=== PATIENT | female | born 1985 | race Hispanic/Latino ===

== ENCOUNTER 2022-01-06 12:37 | Emergency (ER) | payer SELFPAY ==
[2022-01-06 12:40] VITALS: BP 96/47; PULSE 99; RESP 16; TEMP 36.2; O2SAT 100
--- NOTE | 2022-01-06 12:57 | ED.GENADULT ---
HPI - General Adult General Chief complaint: Nausea/Vomiting/Diarrhea Stated complaint: vomiting Time Seen by Provider: 01/06/22 12:46 History of Present Illness HPI narrative: this is a 36-year-old female presenting to ED with 1 day of nausea and vomiting. Patient denied eating food throughout the day yesterday. She then went out and had 4 [place] cocktails. At 2:00 a.m. she began having vomiting. The patient has a history of cyclic vomiting although she has not had the episode in over 3 years. Patient also has abdominal pain that she describes as a burning sensation in the epigastric area that is nonradiating, 5 out 10 intensity and constant. The patient believes that there may be some element of hangover and vault in her current symptoms but is concerned because he has had cyclic vomiting in the past. Related Data Allergies Allergy/AdvReac Type Severity Reaction Status Date / Time PROCHLORPERAZINE MALEATE Allergy Unknown Unknown Uncoded 01/06/22 12:44 Review of Systems Review of Systems: CONSTITUTIONAL: Denies night sweats. EYES: No eye pain ENT: Denies rhinorrhea CARDIOVASCULAR: Denies palpitations RESPIRATORY: Denies hemoptysis GASTROINTESTINAL: Denies hematemesis GENITOURINARY: Denies hematuria. SKIN: Denies rash MUSCULOSKELETAL: Denies myalgia. NEUROLOGIC: Denies weakness. PSYCHIATRIC: Denies delusions PMFSH Past Medical History Medical History Aborted ectopic Social History Social History (Updated 01/06/22 @ 13:00 by Murtaza Damon MD) Social History: Patient drinks alcohol occasionally, denies tobacco or drug use Exam Narrative: APPEARANCE: No apparent distress. Head atraumatic. EYES: PERRLA/EOMI, NOSE: Normal no drainage NECK: Supple, Trachea midline RESPIRATORY: CTAB, No increased work of breathing. CARDIOVASCULAR: S1S2 appreciated ABDOMINAL: mild tenderness palpation the epigastric area. Abdomen is soft, no guarding or rebound MUSCULOSKELETAl: No obvious deformities NEURO: Alert. Moving 4/4 extremities SKIN:: Warm, dry. Normal color PSYCHIATRIC: Normal affect Course Vital Signs Vital signs: Vital Signs Temperature 97.2 F L 01/06/22 12:40 Pulse Rate 99 01/06/22 12:40 Respiratory Rate 16 01/06/22 12:40 Blood Pressure 96/47 L 01/06/22 12:40 Pulse Oximetry 100 01/06/22 12:40 Oxygen Delivery Room Air 01/06/22 12:40 Temperature 97.2 F L 01/06/22 12:40 Pulse Rate 99 01/06/22 12:40 Respiratory Rate 16 01/06/22 12:40 Blood Pressure 96/47 L 01/06/22 12:40 Pulse Oximetry 100 01/06/22 12:40 Oxygen Delivery Room Air 01/06/22 12:40 Medical Decision Making MDM Narrative Medical decision making narrative: this is a 36-year-old female presenting ED with chief complaint of nausea and vomiting since last night. Patient is not a heavy drinker and when out last night. Likely this is alcoholic gastritis or simply a hangover. Patient believes that his cyclic vomiting although she is not a marijuana user and has not had episodes like this over 3 years. She will be treated symptomatically. Patient's lab work was within normal limits. Upon re-evaluation patient says that her headache is improved. She is no longer nauseous. She was able to pass a p.o. challenge. She will be discharged home with [facility]. Vital Signs Vital Signs: Vital Signs Temperature 97.2 F L 01/06/22 12:40 Pulse Rate 99 01/06/22 12:40 Respiratory Rate 16 01/06/22 12:40 Blood Pressure 96/47 L 01/06/22 12:40 Pulse Oximetry 100 01/06/22 12:40 Oxygen Delivery Room Air 01/06/22 12:40 Temperature 97.2 F L 01/06/22 12:40 Pulse Rate 99 01/06/22 12:40 Respiratory Rate 16 01/06/22 12:40 Blood Pressure 96/47 L 01/06/22 12:40 Pulse Oximetry 100 01/06/22 12:40 Oxygen Delivery Room Air 01/06/22 12:40 Lab Data Result diagrams: 01/06/22 13:01 01/06/22 13
[2022-01-06] MEDS: SODIUM CHLORIDE 0.9% IV 2,000 ML 999 ML IV CONT (13:09)
[2022-01-06] MEDS: FAMOTIDINE 20 MG/2 ML VIAL IV PUSH (13:10)
[2022-01-06] MEDS: diphenhydrAMINE HCl INJ 50 MG/ML VIAL 25 MG IV PUSH (13:10)
[2022-01-06] MEDS: ONDANSETRON INJ 4 MG/2 ML VIAL IV PUSH (13:10)
[2022-01-06] MEDS: MAG HYDROX/AL HYDROX/SIMETH 30 ML UDC PO (13:11)
[2022-01-06 13:16] LABS: Basophils Percent Auto 0.1 % (0.2-1.2); Eosinophils Percent Auto 0.1 % (0-4.4); Hematocrit 40.3 % (37.0-47.0); Hemoglobin 13.8 g/dL (12.0-15.0); Immature Granulocyte Absolute 0.03 K/mm3 (0.00-0.031); Immature Granulocyte Percent A 0.3 % (0-0.5); Lymphocytes Absolute Auto 1.68 K/mm3 (0.9-3.2); Mean Corpuscular HGB Conc 34.2 g/dl (32-36); Mean Corpuscular Hemoglobin 30.5 pg (26-34); Monocytes Absolute Auto 0.3 K/mm3 (0.1-0.6); Monocytes Percent Auto 3.2 % (2.6-8.5); Neutrophils Absolute Auto 7.3 K/mm3 (1.3-6.7); Neutrophils Percent Auto 78.3 % (45.5-73.1); Platelet Count Result 357 k/mm3 (150-375); Red Blood Count 4.53 M/mm3 (4.2-5.4); Red Cell Distribution Width 13.8 % (11.5-14.5); White Blood Count 9.3 K/mm3 (4.5-10.0)
[2022-01-06] MEDS: KETOROLAC 15 MG/ML VIAL (*BKC) IV PUSH (13:16)
[2022-01-06] MEDS: HALOPERIDOL LACTATE 5 MG/ML VIAL IV PUSH (13:17)
[2022-01-06 13:27] LABS: Alanine Aminotransferase 25 U/L (6-35); Albumin Level 4.9 g/dL (3.5-5.1); Alkaline Phosphatase 68 U/L (38-126); Anion Gap 14 mmol/L (8-16); Aspartate Amino Transferase 34 U/L (14-36); Bilirubin,Total 0.5 mg/dL (0.2-1.3); Blood Urea Nitrogen 9 mg/dL (7-17); Calcium 8.9 mg/dL (8.4-10.2); Carbon Dioxide 20 mmol/L (22-30); Chloride 109 mmol/L (98-107); Estimated CRCL calculation 92 ml/min; Estimated Glomerular Filt Rate > 60; Glucose 106 mg/dL (65-110); Lipase 95 U/L (23-300); Magnesium 1.9 mg/dL (1.6-2.3); Potassium 3.9 mmol/L (3.4-5.0); Sodium 143 mmol/L (137-145)
--- NOTE | 2022-01-10 11:54 | PC.NURSE ---
late entry- iv fluids discontinued
== END 2022-01-06 14:23 | disposition home or self-care (01) ==
PROVIDERS: Emergency Provider Emergency Medicine; PCP Registered Nurse
DX: R11.2 Nausea with vomiting, unspecified (principal)
CPT/HCPCS: 36415; 80053; 81025; 83690; 83735; 85025; 96361; 96374; 96375; 99284; A9270; J0131; J1200; J1630; J1885; J2405; J7030

== ENCOUNTER 2023-05-21 17:01 | Emergency (ER) | payer SELFPAY ==
[2023-05-21 17:18] VITALS: BP 120/53; PULSE 74; RESP 16; TEMP 37.2; O2SAT 100
--- NOTE | 2023-05-21 17:24 | ED.EYEPROB ---
HPI - Eye Problem General Chief complaint: Eye Problems Stated complaint: eyes swollen,burn Time Seen by Provider: 05/21/23 17:20 Source: patient Mode of arrival: ambulatory Limitations: no limitations History of Present Illness HPI Narrative: Joyce is a 37-year-old female patient presenting to the clinic today with complaints of eyes swollen and burning. She reports this been going on for a week and half. States they are itchy and watering. Has been using polymyxin eyedrops in her eyes. Related Data Home Medications Medication Instructions Recorded Confirmed L norgest/E estradiol-E estrad 1 tablet PO DAILY 05/21/23 05/21/23 0.15 mg-30 mcg (84)/10 mcg(7) tabs,3mos ([place]) Allergies Allergy/AdvReac Type Severity Reaction Status Date / Time PROCHLORPERAZINE MALEATE Allergy Unknown Unknown Uncoded 05/21/23 17:12 Review of Systems Review of Systems: Pertinent positives per HPI. Patient denies any fever, chills, rash, headache, visual changes, dizziness, cough, shortness of breath, chest pain, palpitations, nausea, vomiting, diarrhea, constipation, abdominal pain, or any urinary issues. [facility] Past Medical History Medical History Aborted ectopic Social History Social History Social History: Patient drinks alcohol occasionally, denies tobacco or drug use Comments At the time of my signature, I reviewed and agree with the nursing past medical, surgical, social, and family history. There is no relevant family history pertinent to the patient complaint. Exam Narrative: General: Well-developed, well nourished, in no apparent distress Head: Normocephalic, atraumatic Eyes: Pupils equally round and reactive to light bilaterally, EOM intact, sclera and conjunctive mildly injected, no discharge, lids mildly swollen Ears: TMs intact and clear, ear canals clear, no drainage, grossly hearing normal. Nose: Nares patent, no discharge, no inflammation, no sinus tenderness. Mouth: Oral pharynx without lesions or masses, good dentition, MMM. Neck: Supple, trachea midline, no enlargement of anterior or posterior cervical nodes, no thyroid masses or goiter palpable. Cardio: Regular rate and rhythm, s1 and s2 normal, no murmur appreciated. Resp: Clear to auscultation bilaterally, no rhonchi, rales, wheezing or rubs Course Course Emergency Course: Portions of this record may have been created with voice recognition software. Level of Care: Express Care Visit Vital Signs Vital signs: Vital Signs Temperature 37.2 C 05/21/23 17:18 Pulse Rate 74 05/21/23 17:18 Respiratory Rate 16 05/21/23 17:18 Blood Pressure 120/53 L 05/21/23 17:18 Pulse Oximetry 100 05/21/23 17:18 Oxygen Delivery Room Air 05/21/23 17:18 Temperature 37.2 C 05/21/23 17:18 Pulse Rate 74 05/21/23 17:18 Respiratory Rate 16 05/21/23 17:18 Blood Pressure 120/53 L 05/21/23 17:18 Pulse Oximetry 100 05/21/23 17:18 Oxygen Delivery Room Air 05/21/23 17:18 Vital signs reviewed MDM - Eye Problem MDM Narrative Medical decision making narrative: At the time of visit patient is resting comfortably on the exam table. Patient appears to be nontoxic. Plan: I suspect patient has allergic conjunctivitis. Prescription for azelastine eyedrops was sent to the pharmacy. Supportive measures were discussed with the patient and they voiced understanding discharge instructions and agrees to treatment plan. Return precautions reviewed Differential Diagnosis Differential diagnosis: Likely corneal abrasion, conjunctivitis, acute iritis, hyphema, periorbital cellulitis, subconjunctival hemorrhage, glaucoma, corneal ulcer, ruptured globe and other (COVID) Discharge Plan Discharge Clinical Impression: Acute allergic conjunctivitis Patient Disposition: Home, Self-Care Condition:
== END 2023-05-21 17:30 | disposition home or self-care (01) ==
PROVIDERS: Emergency Provider Nurse Practitioner Family; PCP Registered Nurse
DX: H10.13 Acute atopic conjunctivitis, bilateral (principal)
CPT/HCPCS: 99213; G0463

== ENCOUNTER 2024-09-15 10:58 | Emergency (ER) | payer SELFPAY ==
[2024-09-15 11:06] VITALS: BP 119/44; PULSE 71; RESP 20; TEMP 36.6; O2SAT 100
--- NOTE | 2024-09-15 11:20 | ED.EYEPROB ---
HPI - Eye Problem General Chief complaint: Eye Problems Stated complaint: Left Eye Irritation Time Seen by Provider: 09/15/24 11:12 Source: patient, family (Significant other) and RN notes reviewed Mode of arrival: ambulatory Limitations: no limitations History of Present Illness HPI Narrative: Patient presents today with a 4 day history swelling to the left upper eyelid with pain, tearing, redness, and photophobia. Denies injury, trauma, foreign body sensation, or vision changes. She has been using some ice with short-term improvement of swelling. States she also saw some tiny pimples on the inside of her eyelid few days ago. She does not wear contacts or glasses. Related Data Allergies Allergy/AdvReac Type Severity Reaction Status Date / Time PROCHLORPERAZINE MALEATE Allergy Unknown Unknown Uncoded 09/15/24 11:00 [facility] Past Medical History Medical History Aborted ectopic Social History Social History Social History: Patient drinks alcohol occasionally, denies tobacco or drug use Comments At time of signature, I have reviewed and agree with nursing past medical, surgical, social and family history unless otherwise noted. Please see nursing chart for further information. There is no relevant family history pertinent to the presenting complaint Exam Narrative: GENERAL: Well-appearing, well-nourished, and in no acute distress. HEAD: Normocephalic, atraumatic. EYES: EOMI. PERRL. Right eye normal. Left eye: Conjunctiva normal. Lashes normal. Lower eyelid normal. Upper eyelid is moderately swollen throughout and slightly erythematous along the lash line, tender palpation. When turned up, the upper eyelid is erythematous in places, but no obvious papules noted. No active drainage. ENT: Mucous membranes pink and moist. NECK: Normal AROM. CHEST: No respiratory distress. EXTREMITIES: Normal range of motion. No edema. SKIN: Warm, dry, no rash. Capillary refill normal. Normal skin turgor. NEURO: No focal deficits. Alert and oriented x3. Gait steady. PSYCH: Normal affect. No signs of depression or anxiety. Course Course Level of Care: Express Care Visit Vital Signs Vital signs: Vital Signs Temperature 97.9 F 09/15/24 11:06 Pulse Rate 71 09/15/24 11:06 Respiratory Rate 20 09/15/24 11:06 Blood Pressure 119/44 L 09/15/24 11:06 Pulse Oximetry 100 09/15/24 11:06 Oxygen Delivery Room Air 09/15/24 11:06 Temperature 97.9 F 09/15/24 11:06 Pulse Rate 71 09/15/24 11:06 Respiratory Rate 20 09/15/24 11:06 Blood Pressure 119/44 L 09/15/24 11:06 Pulse Oximetry 100 09/15/24 11:06 Oxygen Delivery Room Air 09/15/24 11:06 Reviewed MDM - Eye Problem MDM Narrative Medical decision making narrative: Pleasant 39-year-old female presents with swelling, pain, redness to the left upper eyelid and had noted papules to the inner upper eyelid that are not currently found. Likely has a stye causing her symptoms. Recommend frequent warm compresses and will place patient on Augmentin and some Polytrim to prevent cellulitis. Recommend starting NSAID to help with her edema as well. Vital signs stable. Anticipatory guidance given. Differential Diagnosis Differential diagnosis: Likely corneal abrasion, conjunctivitis, periorbital cellulitis and other (Stye, blepharitis) Critical Care Time Critical Care Time Critical Care Time: No Discharge Plan Discharge Clinical Impression: Hordeolum internum left upper eyelid Patient Disposition: Home Condition: Stable Instructions: Reena (ED) Additional Instructions: Please use warm compresses on your eye. Start an anti-inflammatory such as Aleve or ibuprofen. Take the Augmentin and use the eyedrops swell. If symptoms are not improving in 3 days, please follow-up with an eye doctor or your PCP. Patient Language: Irish Prescriptions: New polymyxin B sulf-trimethoprim 10,000 unit- 1 mg/mL drops 1 drp EACH EYE QID 7 Days Qty: 10 0RF amoxicillin-pot clavulanate 875-125 mg tablet 1 tablet PO Q12H 7 Days Qty: 14 0RF Follow-up/Referrals: Darwin,RAMIREZ Selby [Primary Care Provider] - Stand Alone Forms: Work/School Release IP Time of Disposition: 11:26
== END 2024-09-15 11:30 | disposition home or self-care (01) ==
PROVIDERS: Emergency Provider Nurse Practitioner; PCP Registered Nurse
DX: H00.024 Hordeolum internum left upper eyelid (principal)
CPT/HCPCS: 99213; G0463